=== PATIENT | female | born 1950 | race Caucasian/White ===

== ENCOUNTER 2017-08-05 06:16 | Day surgery (SDC) | payer OTHER ==
[~2017-08-05] VITALS: Ht 167.6 cm; Wt 79.9 kg
[~2017-08-05 06:16] MED LIST: ALBU90OI INH; AMLO5 PO; BUDE6HFA INH; CYCL10 PO; Cyclobenzaprine5 MG PO; ENOX40I SC; ESOM20 PO; HYDMOR2 PO; LEVSOD50; Nexium40 MG PO; OMEP20ER PO; OXYC10ER PO; OXYC15ER PO; OXYC30 PO; SUCR1 PO; Synthroid50 MCG PO; TRAM50 PO
[2017-08-05] MEDS ORDERED: Omeprazole20 M1 (06:49)
[2017-08-05] MEDS ORDERED: Aspirin EC81 MG (06:49)
== END 2017-08-05 10:50 | disposition home or self-care (01) ==
LOC: ORSCSDS 06:16
PROVIDERS: Orthopaedic Surgery
PROC: 0LS24ZZ Reposition Left Shoulder Tendon, Percutaneous Endoscopic Approach (ICD-10-PCS; principal; 2017-08-05 08:00)
PROC: 0LQ24ZZ Repair Left Shoulder Tendon, Percutaneous Endoscopic Approach (ICD-10-PCS; principal; 2017-08-05 08:00)
PROC: 0RHK44Z Insertion of Internal Fixation Device into Left Shoulder Joint, Percutaneous Endoscopic Approach (ICD-10-PCS; principal; 2017-08-05 08:00)
PROC: 0RNK4ZZ Release Left Shoulder Joint, Percutaneous Endoscopic Approach (ICD-10-PCS; principal; 2017-08-05 08:00)
DX: M75.112 Incomplete rotator cuff tear or rupture of left shoulder, not specified as traumatic (principal); M75.22 Bicipital tendinitis, left shoulder; M75.42 Impingement syndrome of left shoulder; M75.52 Bursitis of left shoulder; E03.9 Hypothyroidism, unspecified; Z87.891 Personal history of nicotine dependence; Z79.82 Long term (current) use of aspirin; Z79.899 Other long term (current) drug therapy
CPT/HCPCS: C1713; J0171; J1100; J2250; J2405; J2710; J3010

== ENCOUNTER 2018-10-07 07:23 | Day surgery (SDC) | payer OTHER, BC ==
[~2018-10-07] VITALS: Ht 167.6 cm; Wt 81.3 kg
--- NOTE | 2018-10-07 07:06 | NUR ---
10/07/18 0706 [facility] CALL LIGHT WITHIN REACH. FAMILY AT BEDSIDE
[~2018-10-07 07:23] MED LIST changes: +Aspirin EC81 MG; +CEPH500 PO; +HYDCHL25 PO; +Omeprazole20 M1 PO; +Ranitidine HCl300 M1; +SUCR1; +Zofran4 MG PO
[2018-10-15] MEDS ORDERED: LEVSOD75 PO (09:19)
[2018-10-15] MEDS ORDERED: Ranitidine HCl300 M1 PO (09:19)
[2018-10-15] MEDS ORDERED: SUCR1 PO (09:20)
== END 2018-10-07 08:49 | disposition home or self-care (01) ==
LOC: ORSCSDS 07:23
PROVIDERS: Ophthalmology
PROC: 08RJ3JZ Replacement of Right Lens with Synthetic Substitute, Percutaneous Approach (ICD-10-PCS; principal; 2018-10-07 08:00)
DX: H25.11 Age-related nuclear cataract, right eye (principal); K21.9 Gastro-esophageal reflux disease without esophagitis; Z79.899 Other long term (current) drug therapy
CPT/HCPCS: J2001; J2250; J3010; J3301; J7040; J7120; V2632

== ENCOUNTER 2018-10-22 07:53 | Day surgery (SDC) | payer OTHER, BC ==
[~2018-10-22] VITALS: Ht 167.6 cm; Wt 81.4 kg
[~2018-10-22 07:53] MED LIST changes: +LEVSOD75 PO; +Ranitidine HCl300 M1 PO
[2018-10-22] MEDS ORDERED: GENPREOPSU (08:30)
--- NOTE | 2018-10-22 09:34 | NUR ---
10/22/18 0934 Cony Reyes PT AWARE IS STILL WORKING ON PROCEDURE THE PREVIOUS PROCEDURE. PT PLEASANT WITH AT BEDSIDE. PILLOW PROVIDED UNDER KNEES FOR COMFORT. CALL LIGHT WITHIN REACH.
--- NOTE | 2018-10-22 10:48 | NUR ---
10/22/18 1048 Cony Reyes GROUNDING PAD PLACED ON RIGHT CALF
== END 2018-10-22 11:10 | disposition home or self-care (01) ==
LOC: ORSCSDS 07:53
PROVIDERS: Student in an Organized Health Care Education/Training Program
PROC: 0DB68ZX Excision of Stomach, Via Natural or Artificial Opening Endoscopic, Diagnostic (ICD-10-PCS; principal; 2018-10-22 09:15)
PROC: 0DB58ZX Excision of Esophagus, Via Natural or Artificial Opening Endoscopic, Diagnostic (ICD-10-PCS; principal; 2018-10-22 09:15)
DX: R10.13 Epigastric pain (principal); K31.7 Polyp of stomach and duodenum; K29.70 Gastritis, unspecified, without bleeding; I10 Essential (primary) hypertension; E03.9 Hypothyroidism, unspecified; Z86.718 Personal history of other venous thrombosis and embolism; F32.9 Major depressive disorder, single episode, unspecified; Z87.891 Personal history of nicotine dependence; Z79.899 Other long term (current) drug therapy
CPT/HCPCS: 88305; 88341; 88342; J2405; J2704; J7120

== ENCOUNTER 2019-04-28 12:31 | Emergency (ER) | payer OTHER, BC ==
[~2019-04-28] VITALS: Ht 167.6 cm; Wt 79.4 kg
[~2019-04-28 12:31] MED LIST changes: +GENPREOPSU
[2019-04-28 13:00] LABS: BASOPHILS ABSOLUTE AUTO 0.03 K/mm3 (0.00-0.23); BASOPHILS PERCENT AUTO 1 % (0-2); EOSINOPHILS ABSOLUTE AUTO 0.05 K/mm3 (0.00-0.68); EOSINOPHILS PERCENT AUTO 1 % (0-6); Hematocrit 46.9 % (33.0-51.0); Hemoglobin 15.4 g/dL (11.5-16.0); IMMATURE GRAN ABSOLUTE AUTO 0.02 K/mm3 (0.00-0.10); IMMATURE GRAN PERCENT AUTO 0 % (0-1); LYMPHOCYTES ABSOLUTE AUTO 2.15 K/mm3 (0.84-5.20); LYMPHOCYTES PERCENT AUTO 38 % (21-46); MONOCYTES ABSOLUTE AUTO 0.68 K/mm3 (0.16-1.47); MONOCYTES PERCENT AUTO 12 % (4-13); Mean Corpuscular HGB 27.5 pg (26.0-34.0); Mean Corpuscular HGB Conc 32.8 g/dL (31.5-36.5); Mean Corpuscular Volume 84 fL (80-100); Mean Platelet Volume 11.4 fL (9.1-12.4); NEUTROPHILS ABSOLUTE AUTO 2.72 K/mm3 (1.96-9.15); NEUTROPHILS PERCENT AUTO 48 % (41-73); Platelet Count 262 K/mm3 (150-400); RDW Standard Deviation 36.2 fL (35.1-46.3); White Blood Cell Count 5.65 K/mm3 (4.00-11.30)
[2019-04-28 13:13] LABS: Source, Urine Clean Catch
[2019-04-28 13:17] LABS: Alanine Aminotransfer (ALT/SGP 32 U/L (12-78); Albumin/Globulin Ratio 0.9 (0.8-1.8); Alk Phos 82 U/L (50-136); Anion Gap 8 mmol/L (6-16); Aspartate Aminotrans (AST/SGOT 25 U/L (12-37); Bilirubin, Total 0.5 mg/dL (0.1-1.0); Blood Urea Nitrogen 14 mg/dL (8-24); Bun/Creatinine Ratio 23.5 (12.0-20.0); CO2, Blood 27 mmol/L (21-32); Calcium, Blood 9.7 mg/dL (8.5-10.1); Chloride, Blood 103 mmol/L (98-108); Globulin, Blood 4.3 g/dL (2.2-4.0); Glomerular Filtration Rate >60 (60-); Glucose, Blood 92 mg/dL (70-99); Potassium, Blood 3.9 mmol/L (3.5-5.5); Sodium, Blood 138 mmol/L (136-145); Total Protein, Blood 8.3 g/dL (6.4-8.2)
[2019-04-28 13:18] LABS: Bilirubin, Urine Neg (Neg); Blood, Urine Neg (Neg); Glucose Qualitative, Urine Neg (Neg); Ketones, Urine Neg (Neg); Leukocyte Esterase, Urine 1+ (Neg); Nitrite, Urine Neg (Neg); Protein, Urine Neg (Neg); Urobilinogen, Urine NORM (Normal)
[2019-04-28 13:28] LABS: Appearance, Urine Clear (Clear); Color, Urine Yellow (P-Yellow)
[2019-04-28 13:32] LABS: Bacteria Few /hpf; Red Blood Cells, Urine Not Seen /hpf (0-2); White Blood Cells, Urine 0-2 /hpf (0-5)
[2019-04-28 13:34] LABS: Squamous Epithelial Cells Rare /hpf (Few); Transitional Epithelial Cells Rare /hpf (0-Rare)
[2019-04-28] MEDS ORDERED: Ativan1 MG SL (18:02)
== END 2019-04-28 18:07 | disposition home or self-care (01) ==
LOC: ER 12:31
PROVIDERS: Emergency Medicine
DX: J40 Bronchitis, not specified as acute or chronic (principal); E03.9 Hypothyroidism, unspecified; Z88.1 Allergy status to other antibiotic agents; Z88.8 Allergy status to other drugs, medicaments and biological substances; Z88.5 Allergy status to narcotic agent; Z91.013 Allergy to seafood; Z79.899 Other long term (current) drug therapy; Z87.891 Personal history of nicotine dependence; Z86.718 Personal history of other venous thrombosis and embolism
CPT/HCPCS: 36415; 71046; 71260; 80053; 81001; 84484; 85025; 87086; 93005; 93010; 96374-59; 99284-25; J2060; Q9967

== ENCOUNTER 2019-05-04 10:29 | Emergency (ER) | payer OTHER, BC ==
[~2019-05-04] VITALS: Ht 167.6 cm; Wt 99.8 kg
[~2019-05-04 10:29] MED LIST changes: +Ativan1 MG SL
[2019-05-04 11:01] LABS: BASOPHILS ABSOLUTE AUTO 0.01 K/mm3 (0.00-0.23); BASOPHILS PERCENT AUTO 0 % (0-2); EOSINOPHILS ABSOLUTE AUTO 0.01 K/mm3 (0.00-0.68); EOSINOPHILS PERCENT AUTO 0 % (0-6); Hematocrit 44.8 % (33.0-51.0); Hemoglobin 14.7 g/dL (11.5-16.0); IMMATURE GRAN ABSOLUTE AUTO 0.03 K/mm3 (0.00-0.10); IMMATURE GRAN PERCENT AUTO 0 % (0-1); LYMPHOCYTES ABSOLUTE AUTO 2.38 K/mm3 (0.84-5.20); LYMPHOCYTES PERCENT AUTO 31 % (21-46); MONOCYTES ABSOLUTE AUTO 0.92 K/mm3 (0.16-1.47); MONOCYTES PERCENT AUTO 12 % (4-13); Mean Corpuscular HGB 27.5 pg (26.0-34.0); Mean Corpuscular HGB Conc 32.8 g/dL (31.5-36.5); Mean Corpuscular Volume 84 fL (80-100); Mean Platelet Volume 11.6 fL (9.1-12.4); NEUTROPHILS PERCENT AUTO 56 % (41-73); Platelet Count 288 K/mm3 (150-400); RDW Standard Deviation 36.1 fL (35.1-46.3); Red Blood Cell Count 5.35 M/mm3 (3.80-5.20); White Blood Cell Count 7.65 K/mm3 (4.00-11.30)
[2019-05-04 11:23] LABS: Alanine Aminotransfer (ALT/SGP 28 U/L (12-78); Albumin, Blood 3.9 g/dL (3.4-5.0); Albumin/Globulin Ratio 0.9 (0.8-1.8); Alk Phos 81 U/L (50-136); Anion Gap 10 mmol/L (6-16); Aspartate Aminotrans (AST/SGOT 18 U/L (12-37); Bilirubin, Total 0.6 mg/dL (0.1-1.0); Blood Urea Nitrogen 17 mg/dL (8-24); Bun/Creatinine Ratio 20.9 (12.0-20.0); CO2, Blood 24 mmol/L (21-32); Calcium, Blood 9.1 mg/dL (8.5-10.1); Chloride, Blood 102 mmol/L (98-108); Creatinine, Blood 0.81 mg/dL (0.40-1.00); Globulin, Blood 4.2 g/dL (2.2-4.0); Glomerular Filtration Rate >60 (60-); Glucose, Blood 84 mg/dL (70-99); Potassium, Blood 3.3 mmol/L (3.5-5.5); Sodium, Blood 136 mmol/L (136-145); Total Protein, Blood 8.1 g/dL (6.4-8.2)
[2019-05-04 11:24] LABS: Troponin I <0.015 ng/mL (0.000-0.040)
[2019-05-04] MEDS ORDERED: LABE100 PO (14:03)
--- NOTE | 2019-05-04 14:52 | NUR ---
Echocardiogram completed.
[2019-05-08 10:06] LABS: METANEPHRINE, PL 26 pg/mL (0-62); NORMETANEPHRINE, PL 168 pg/mL (0-145)
[2019-05-08 11:07] LABS: METANEPH/CREAT RATIO 0.5 (0.0-1.0)
== END 2019-05-04 15:47 | disposition home or self-care (01) ==
LOC: ER 10:29
PROVIDERS: Emergency Medicine
DX: R00.2 Palpitations (principal); Z87.891 Personal history of nicotine dependence; Z88.8 Allergy status to other drugs, medicaments and biological substances; Z88.5 Allergy status to narcotic agent; Z88.1 Allergy status to other antibiotic agents; Z91.013 Allergy to seafood; Z79.899 Other long term (current) drug therapy
CPT/HCPCS: 36415; 71046; 80053; 82384; 82570; 83690; 83835; 84443; 84484; 85025; 93005; 93010; 93306; 99285-25